=== PATIENT | female | born 2000 | race Two or more races ===

== ENCOUNTER 2022-02-18 20:24 | Emergency (ER) | payer BC, OTHER ==
[~2022-02-18] VITALS: Ht 152.4 cm; Wt 53.1 kg
[2022-02-18 21:13] VITALS: BP 144/99
== END 2022-02-18 22:55 | disposition home or self-care (01) ==
LOC: ER 20:24
DX: S06.0X0A Concussion without loss of consciousness, initial encounter (principal); J45.909 Unspecified asthma, uncomplicated; W22.8XXA Striking against or struck by other objects, initial encounter; Y93.89 Activity, other specified; Y92.89 Other specified places as the place of occurrence of the external cause; Y99.8 Other external cause status
CPT/HCPCS: 81025